=== PATIENT | female | born 1980 | race Caucasian/White ===

== ENCOUNTER 2017-05-22 15:54 | Emergency (ER) | payer MEDICAID ==
[~2017-05-22] VITALS: Ht 157.5 cm; Wt 57.0 kg
[~2017-05-22 15:54] MED LIST: CALC600T11 PO; PREN1TAB49 PO
[2017-05-22 15:58] VITALS: Ht 157.5 cm; Wt 57.0 kg
[2017-05-22] MEDS ORDERED: CEFTRIAXONE 1 GM/50 ML (PMX) 50 ML IVPB ONE (18:00)
[2017-05-22] MEDS ORDERED: VANCOMYCIN 1.25 GM in SOD CHLORIDE 0.9% 250 ML IVPB ONE (18:00)
[2017-05-22 18:13] LABS: BASOPHIL # 0.1 10^3/ul (0.0-0.1); BASOPHILS % 0.5 % (0.0-2.0); EOSINOPHILS # 0.2 10^3/ul (0.0-0.5); EOSINOPHILS % 1.7 % (0.0-7.0); HEMATOCRIT 37.1 % (37.0-47.0); HEMOGLOBIN 12.2 g/dl (12.0-16.0); LYMPHOCYTES # 1.9 10^3/ul (0.8-2.9); LYMPHOCYTES % 14.7 % (15.0-51.0); MEAN CORPUSCULAR HEMOGLOBIN 29.2 pg (29.0-33.0); MEAN CORPUSCULAR HGB CONC 32.9 g/dl (32.0-37.0); MEAN CORPUSCULAR VOLUME 88.8 fl (82.0-101.0); MEAN PLATELET VOLUME 8.9 fl (7.4-10.4); MONOCYTE # 0.6 10^3/ul (0.3-0.9); MONOCYTES % 4.4 % (0.0-11.0); NEUTROPHILS % 78.4 % (39.0-77.0); PLATELET COUNT 300 10^3/UL (140-415); RED BLOOD COUNT 4.18 10^6/ul (4.20-5.40); WHITE BLOOD COUNT 13.1 10^3/ul (4.8-10.8)
[2017-05-22 18:52] LABS: ALBUMIN 4.2 g/dl (3.3-4.9); ALBUMIN/GLOBULIN RATIO 1.1; BILIRUBIN,INDIRECT 0.4 mg/dl (0-1.1); BILIRUBIN,TOTAL 0.4 mg/dl (0.2-1.3); CALCIUM 9.1 mg/dl (8.4-10.2); CREATININE 0.62 mg/dl (0.44-1.00); POTASSIUM 3.5 mmol/L (3.5-5.1)
[2017-05-22] MEDS ORDERED: KETOROLAC 30 MG INJ IV STA (19:01)
[2017-05-22] MEDS ORDERED: SULF1TAB31 PO (19:19)
[2017-05-22] MEDS ORDERED: CEPH-443 PO (19:19)
[2017-05-22] MEDS ORDERED: IBUP-1542 PO (19:19)
--- NOTE | 2017-05-22 20:13 | ERD ---
ER Documentation Chief Complaint Date/Time DATE: 05/22/17 TIME: 19:58 Chief Complaint RIGHT 1ST FINGER REDNESS AND SWELLING HPI 36-year-old female presented to ED complaining of pain and swelling of her right fifth finger. Patient states that he thinks that she may have bitten by insect 6 days ago. It was initially itching and painful. Has becoming progressively more red and swollen over time. It is not extremely painful. She went to her PCP earlier today, was told to come to the ER because she has lymphatic streaking and a large lymph node on her right elbow. Denies fever or chills. Denies abdominal pain. Denies nausea or vomiting. ROS All systems reviewed and are negative except as per history of present illness. Medications Home Meds Active Scripts Ibuprofen* (Motrin*) 600 Mg Tab, 600 MG PO Q6H Y for PAIN AND OR ELEVATED TEMP, #30 TAB Prov:FÉLIX SANCHEZ. AEROBICS TEACHER 05/22/17 Sulfamethoxazole/Trimethoprim* (Bactrim Ds* Tablet) 1 Each Tablet, 1 TAB PO BID , #14 TAB Prov:FÉLIX SANCHEZ AEROBICS TEACHER 05/22/17 Cephalexin* (Keflex*) 500 Mg Capsule, 500 MG PO QID for 7 Days, CAP Prov:FÉLIX SANCHEZ. AEROBICS TEACHER 05/22/17 Reported Medications Calcium Carbonate* (Calcium Carbonate*) 600 MG Ca Tab, 600 MG PO DAILY, TAB 04/20/15 Vits W-Ca,Fe,Fa(<1MG) () 1 Tab Tablet, 1 TAB PO 12/18/12 Allergies Allergies: Coded Allergies: No Known Drug Allergies (Verified Allergy, Unknown, 02/20/13) PMhx/Soc Medical and Surgical Hx: pt denies Medical Hx History of Surgery: Yes (YOBANY 99) Hx Alcohol Use: No Hx Substance Use: No Hx Tobacco Use: No Smoking Status: Never smoker Physical Exam Vitals Vital Signs Date Time Temp Pulse Resp B/P Pulse Ox O2 Delivery O2 Flow Rate FiO2 05/22/17 15:58 98.0 86 18 131/72 98 Physical Exam General: Well-developed, well-nourished, conscious and coherent, in no distress Skin: Warm and dry without rash, good texture and turgor Head: Normocephalic without evidence of trauma Eyes: Sclera and conjunctivae normal; pupils equal, round, and reactive to light; extraocular movements are intact Chest: Normal AP diameter. Good expansion without retractions. Nontender. Lungs are clear to auscultate bilaterally with good tidal volume Heart: Regular rate and rhythm. No murmur, rub, or gallops heard Extremities: Right fifth finger erythematous and swollen over the medial phalanx, non-fluctuant, decreased range of motion. Lymphatic streaking noted in the right forearm up to the left elbow. There is a large lymph node palpable on the ulnar aspect of the left elbow. Good strength bilaterally. No clubbing, cyanosis, or edema. Peripheral pulses are intact. Sensation intact Neuro: Alert and oriented 4, GCS 15. Cranial nerves grossly intact. Motor and sensory exams nonfocal. Moves all extremities. Speech clear. Gait normal Result Diagram: 05/22/17175705/22/171757 Results 24 hrs Laboratory Tests Test 05/22/17 17:58 White Blood Count 13.110^3/ul Red Blood Count 4.1810^6/ul Hemoglobin 12.2g/dl Hematocrit 37.1% Mean Corpuscular Volume 88.8fl Mean Corpuscular Hemoglobin 29.2pg Mean Corpuscular Hemoglobin Concent 32.9g/dl Red Cell Distribution Width 12.0% Platelet Count 22082^3/UL Mean Platelet Volume 8.9fl Neutrophils % 78.4% Lymphocytes % 14.7% Monocytes % 4.4% Eosinophils % 1.7% Basophils % 0.5% Nucleated Red Blood Cells % 0.0/100WBC Neutrophils # (Manual) 10.310^3/ul Lymphocytes # 1.910^3/ul Monocytes # 0.610^3/ul Eosinophils # 0.210^3/ul Basophils # 0.110^3/ul Nucleated Red Blood Cells # 0.010^3/ul Sodium Level 138mmol/L Potassium Level 3.5mmol/L Chloride Level 104mmol/L Carbon Dioxide Level 25mmol/L Anion Gap 13 Blood Urea Nitrogen 6mg/dl Creatinine 0.62mg/dl Glucose Level 104mg/dl Calcium Level 9.1mg/dl Total Bilirubin 0.4mg/dl Direct Bilirubin 0.00mg/dl Indirect Bilirubin 0.4mg/dl Aspartate Amino Transf (AST/SGOT) 20IU/L Alanine Aminotransferase (ALT/SGPT) 27IU/L Alkaline Phosphatase 106IU/L Total Protein 8.0g/dl Albumin 4.2g/dl Globulin 3.80g/dl Albumin/Globulin Ratio 1.10 Current Medications Medications (Trade) Dose Ordered Sig/Elzbieta Route PRN Reason Start Time Stop Time Status Last Admin Dose Admin Ceftriaxone Sodium 50 ml @ 100 mls/hr ONCE ONCE IVPB 05/22/17 18:00 05/22/17 18:29 DC 05/22/17 18:04 Vancomycin HCl/ Sodium Chloride (Vancocin/NS) 250 ml @ 83.333 mls/ hr ONCE ONCE IVPB 05/22/17 18:00 05/22/17 20:59 05/22/17 18:38 Ketorolac Tromethamine (Toradol) 30 mg ONCE STAT IV 05/22/17 19:01 05/22/17 19:03 DC 05/22/17 19:07 Procedures/MDM 36-year-old female presented to ED with cellulitis of the right fifth finger, along with lymphatic streaking. There is no fluctuance, essentially drainage is not indicated. CBC showed mild leukocytosis. Blood culture was obtained per request of my supervising physician, Dr. Trevino. Patient is given Rocephin 1 g IV piggyback, and vancomycin 1.25 g IV piggyback in the ED. Patient was also given Toradol 30 mg IV for pain. Patient appears well, stable for discharge and outpatient management. Medical decision making shared with patient and family. Education provided to patient and family. Patient and family expressed understanding of the plan. Medications on discharge: Keflex, Bactrim DS. Follow-up: Return to eating 2 days for wound check. The case was reviewed and discussed with Dr. Trevino, who agrees with the plan of care including labs, treatment, and advanced imaging as appropriate. Disclaimer: Inadvertent spelling and grammatical errors are likely due to EHR/ dictation software use and do not reflect on the overall quality of patient care. Also, please note that the electronic time recorded on this note does not necessarily reflect the actual time of the patient encounter. Departure Diagnosis: Primary Impression: Cellulitis Site of cellulitis: extremity Site of cellulitis of extremity: finger Laterality: right Qualified Code: L03.011 - Cellulitis of finger of right hand Condition: Stable Patient Instructions: Cellulitis Additional Instructions: Regrese a estas instalaciones dentro de DOS VEGA para un examen de seguimiento.Regrese antes si rodrigues condicin se empeora. FÉLIX SANCHEZ NP May 22, 2017 20:08
[2017-05-22 21:57] VITALS: BP 128/65; PULSE 76; RESP 18
== END 2017-05-22 21:58 | disposition home or self-care (01) ==
LOC: FTE 15:54
DX: L03.011 Cellulitis of right finger (principal)
CPT/HCPCS: 80053; 85025; 87040; 96365; 96366; 96367; 96375; J0696; J1885; J3370; J7050; Z7502

== ENCOUNTER 2017-05-24 11:35 | Emergency (ER) | payer MEDICAID ==
[~2017-05-24] VITALS: Ht 162.6 cm; Wt 57.5 kg
[~2017-05-24 11:35] MED LIST changes: +CEPH-443 PO; +IBUP-1542 PO; +SULF1TAB31 PO
[2017-05-24 11:41] VITALS: Ht 162.6 cm; Wt 57.5 kg
[2017-05-24] MEDS ORDERED: LIDOCAINE 2% (MDV) 20 ML INJ INJ STA (12:14)
[2017-05-24] MEDS ORDERED: HYDR-906 PO (12:44)
--- NOTE | 2017-05-24 12:50 | ERD ---
ER Documentation Chief Complaint Date/Time DATE: 05/24/17 TIME: 12:47 Chief Complaint pt bib self with c/o right "pinky " finger bite, needs "it cut open" HPI Patient is a 36-year-old female who presents with an area of redness and swelling on her right pinky finger dorsal surface. She was seen at an outside facility and diagnosed with cellulitis in his finger and was given Bactrim and Keflex which she is taking as well as Motrin for pain but she states the area is gotten worse now she sees a white area at the top of it. No fever. No numbness or tingling or loss of range of motion. ROS All systems reviewed and are negative except as per history of present illness. Medications Home Meds Active Scripts Hydrocodone/Acetaminophen (Lawrence 5-325 Tablet) 1 Each Tablet, 1 TAB PO Q6H Y for PAIN, #20 TAB Prov:RAHEEM DUARTE PA-C 05/24/17 Ibuprofen* (Motrin*) 600 Mg Tab, 600 MG PO Q6H Y for PAIN AND OR ELEVATED TEMP, #30 TAB Prov:FÉLIX SANCHEZ NP 05/22/17 Sulfamethoxazole/Trimethoprim* (Bactrim Ds* Tablet) 1 Each Tablet, 1 TAB PO BID , #14 TAB Prov:FÉLIX SANCHEZ NP 05/22/17 Cephalexin* (Keflex*) 500 Mg Capsule, 500 MG PO QID for 7 Days, CAP Prov:FÉLIX SANCHEZ TRAILER STEERER 05/22/17 Reported Medications Calcium Carbonate* (Calcium Carbonate*) 600 MG Ca Tab, 600 MG PO DAILY, TAB 04/20/15 Vits W-Ca,Fe,Fa(<1MG) () 1 Tab Tablet, 1 TAB PO 12/18/12 Allergies Allergies: Coded Allergies: No Known Drug Allergies (Verified Allergy, Unknown, 05/24/17) PMhx/Soc Medical and Surgical Hx: pt denies Medical Hx History of Surgery: Yes (YOBANY 1998) Hx Alcohol Use: No Hx Substance Use: No Hx Tobacco Use: No Smoking Status: Never smoker FmHx Family History: No diabetes Physical Exam Vitals Vital Signs Date Time Temp Pulse Resp B/P Pulse Ox O2 Delivery O2 Flow Rate FiO2 05/24/17 11:41 99.1 70 18 117/64 99 Physical Exam Const: [] Head: Atraumatic Eyes: Normal Conjunctiva ENT: Normal External Ears, Nose and Mouth. Neck: Full range of motion..~ No meningismus. Resp: Clear to auscultation bilaterally Cardio: Regular rate and rhythm, no murmurs Abd: Soft, non tender, non distended. Normal bowel sounds Skin: On the dorsal surface of the right pinky finger between the DIP and the PIP joint there is an area of erythema and warmth and tenderness with fluctuance. Full range of motion in the finger, capillary refill less than 2 second Results 24 hrs Current Medications Medications (Trade) Dose Ordered Sig/Elzbieta Route PRN Reason Start Time Stop Time Status Last Admin Dose Admin Lidocaine (Xylocaine 2% (Mdv) 20 ml) 20 ml ONCE STAT INJ 05/24/17 12:14 05/24/17 12:15 DC Procedures/MDM The abscess was infiltrated with 1% Lidocaine for local anesthesia. A scalpel was then used to incise the central, fluctuant area of the abscess. There was immediate pus drainage from the wound. There were no complications and pt tolerated the procedure well. The would was appropriately dressed and bandaged. Pt already has prescription for bactrim and keflex. Gave her some Lawrence for pain control. I recommended that pt return in 2 days for a wound check. Patient counseled regarding my diagnostic impression and care plan. Prior to discharge all questions answered. Pt agrees with treatment plan and understands strict return precautions. Pt is instructed to follow up with primary care provider within 24-48 hours. Precautionary instructions provided including instructions to return to the ER if not improving or for any worsening or changing symptoms or concerns. Departure Diagnosis: Primary Impression: Abscess Condition: Stable Patient Instructions: Abscess, Incision And Drainage Additional Instructions: Call your primary care doctor TOMORROW for an appointment during the next 1-2 days.See the doctor sooner or return here if your condition worsens before your appointment time. RAHEEM DUARTE PA-C May 24, 2017 12:50
== END 2017-05-24 13:04 | disposition home or self-care (01) ==
LOC: FTE 11:35
DX: L02.511 Cutaneous abscess of right hand (principal)
CPT/HCPCS: 10060; Z7502; Z7610

== ENCOUNTER 2017-11-14 13:02 | Emergency (ER) | END 2017-11-14 18:20 | disposition home or self-care (01) ==